=== PATIENT | male | born 1990 | race Caucasian/White ===

== ENCOUNTER 2017-04-23 12:09 | Emergency (ER) | payer SELFPAY ==
[2017-04-23] MEDS ORDERED: MORPHINE SULFATE 10 MG/ML INJ IV ONE ×2 (13:15→13:46)
[2017-04-23] MEDS ORDERED: ONDANSETRON HCL INJ/PF 4 MG/2 ML SDV IV ONE (13:15)
--- NOTE | 2017-04-23 13:16 | ER Document Report ---
ED Medical Screen (RME) - General Chief Complaint: Shoulder Injury Stated Complaint: LEFT SHOULDER PAIN Time Seen by Provider: 04/23/17 13:14 Notes: pt fell down stairs, has severe left shoulder pain TRAVEL OUTSIDE OF THE [place] IN LAST 30 DAYS: Yes - Related Data Allergies/Adverse Reactions: cefixime [From Suprax] Allergy (Verified 04/23/17 12:53) Past Medical History - Social History Chew tobacco use (# tins/day): No Frequency of alcohol use: None Drug Abuse: None Renal/ Medical History: Denies: Hx Peritoneal Dialysis Psychiatric Medical History: Reports: Hx Anxiety, Hx Depression - Immunizations Immunizations up to date: Yes Hx Diphtheria, Pertussis, Tetanus Vaccination: Yes Physical Exam - Vital signs Vitals: Temp Pulse Resp BP Pulse Ox 98.6 F 91 16 138/81 H 100 04/23/17 12:49 04/23/17 12:49 04/23/17 12:49 04/23/17 12:49 04/23/17 12:49 Course - Vital Signs Vital signs: Temp Pulse Resp BP Pulse Ox 98.6 F 91 16 138/81 H 100 04/23/17 12:49 04/23/17 12:49 04/23/17 12:49 04/23/17 12:49 04/23/17 12:49
[2017-04-23] MEDS ORDERED: MORPHINE SULFATE 10 MG/ML INJ ONE (13:43)
[2017-04-23] MEDS ORDERED: NORMAL SALINE 1000 ML 1,000 ML IV ONE (13:46)
[2017-04-23] MEDS ORDERED: PROPOFOL INJ 200 MG/20 ML VIAL IV ONE ×2 (13:46→14:38)
--- NOTE | 2017-04-23 13:48 | RADIOLOGY REPORT (SQ) ---
EXAM DESCRIPTION: SHOULDER LEFT 2 OR MORE VIEWS COMPLETED DATE/TIME: 04/23/2017 1:41 pm REASON FOR STUDY: pain COMPARISON: None. NUMBER OF VIEWS: Three views. TECHNIQUE: Internal rotation, external rotation, and Y view images acquired of the left shoulder. LIMITATIONS: None. FINDINGS: MINERALIZATION: Normal. BONES: Anterior dislocation of the humeral head. No definite acute fracture visualized. JOINTS: No dislocation. VISUALIZED LUNGS AND RIBS: No pneumothorax. No rib fracture. SOFT TISSUES: No radiopaque foreign body. OTHER: No other significant finding. IMPRESSION: ANTERIOR DISLOCATION OF THE HUMERAL HEAD. NO FRACTURE VISUALIZED. TECHNICAL DOCUMENTATION: JOB ID: [id number] [employer]- All Rights Reserved
--- NOTE | 2017-04-23 13:59 | ER Document Report ---
ED Extremity Problem, Upper - General Chief Complaint: Shoulder Injury Stated Complaint: LEFT SHOULDER PAIN Time Seen by Provider: 04/23/17 13:14 Notes: The patient is a 26-year-old male who presents with left shoulder pain and possible dislocation after he tripped down some stairs earlier today. He also has a left forehead swelling where he hit the bottom stair. He denies LOC, numbness, tingling, neck pain, abdominal pain, open wounds or history of prior dislocations. TRAVEL OUTSIDE OF THE [place] IN LAST 30 DAYS: Yes - Related Data Allergies/Adverse Reactions: cefixime [From Suprax] Allergy (Verified 04/23/17 12:53) Past Medical History - General Information source: Patient - Social History Smoking Status: Current Every Day Smoker Chew tobacco use (# tins/day): No Frequency of alcohol use: None Drug Abuse: None Family History: Reviewed & Not Pertinent Patient has suicidal ideation: No Patient has homicidal ideation: No Renal/ Medical History: Denies: Hx Peritoneal Dialysis Psychiatric Medical History: Reports: Hx Anxiety, Hx Depression - Immunizations Immunizations up to date: Yes Hx Diphtheria, Pertussis, Tetanus Vaccination: Yes Review of Systems - Review of Systems Notes: REVIEW OF SYSTEMS: CONSTITUTIONAL: -fevers, -chills EENT: -eye pain, -difficulty swallowing, -nasal congestion CARDIOVASCULAR:-chest pain, -syncope. RESPIRATORY: -cough, -SOB GASTROINTESTINAL: -abdominal pain, - nausea, -vomiting, -diarrhea GENITOURINARY: -dysuria, -hematuria MUSCULOSKELETAL: +left shoulder pain, -back pain, -neck pain SKIN: -rash or skin lesions. HEMATOLOGIC: -easy bruising or bleeding. LYMPHATIC: -swollen, enlarged glands. NEUROLOGICAL: -altered mental status or loss of consciousness, -headache, - neurologic symptoms PSYCHIATRIC: -anxiety, -depression. ALL OTHER SYSTEMS REVIEWED AND NEGATIVE. Physical Exam - Vital signs Vitals: Temp Pulse Resp BP Pulse Ox 98.6 F 91 16 138/81 H 100 04/23/17 12:49 04/23/17 12:49 04/23/17 12:49 04/23/17 12:49 04/23/17 12:49 - Notes Notes: PHYSICAL EXAMINATION: GENERAL: Uncomfortable. EYES: Pupils equal round and reactive to light, extraocular movements intact, sclera anicteric, conjunctiva are normal. ENT: nares patent, oropharynx clear without exudates. Moist mucous membranes. NECK: Normal range of motion, supple without lymphadenopathy LUNGS: Breath sounds clear to auscultation bilaterally and equal. No wheezes rales or rhonchi. HEART: Regular rate and rhythm without murmurs ABDOMEN: Soft, nontender, normoactive bowel sounds. No guarding, no rebound. No masses appreciated. EXTREMITIES: Deformity of left shoulder. Painful range of motion, no pitting or edema. No cyanosis. N/V intact distally. NEUROLOGICAL: Cranial nerves grossly intact. Normal speech, normal gait. Normal sensory and motor exams. PSYCH: Normal mood, normal affect. SKIN: Small left forehead contusion. Course - Re-evaluation Re-evalutation: Patient with first time left anterior shoulder dislocation that was reduced using procedural sedation and traction countertraction technique. He is neurovascularly intact distally. Placed patient in a shoulder sling, instructed him to use NSAIDs and follow-up with orthopedics tomorrow. - Vital Signs Vital signs: Temp Pulse Resp BP Pulse Ox 98.6 F 91 16 138/81 H 100 04/23/17 12:49 04/23/17 12:49 04/23/17 12:49 04/23/17 12:49 04/23/17 12:49 - Diagnostic Test Radiology reviewed: Image reviewed, Reports reviewed Radiology results interpreted by me: Left shoulder x-ray: Left anterior shoulder dislocation Procedures - Conscious Sedation Conscious sedation Time started: 14:10 Time completed: 14:30 Consent obtained: Yes Indication: Left shoulder dislocation Last meal: 1200 Normal healthy pt.: P1. - ASA Classification Airway Evaluation: Normal anatomy Mallampati Classification: Class 1 Used during procedure: Suction available, IV access obtained, Pulse ox on pt., surveillance system monitor on pt. Medications administered: Diprivan Reversal agents: None I personally performed/intraservice time: Sedation, Procedure, 30 min or less Complications: No - Immobilization Left Shoulder Time completed: 14:30 Pre-Proc Neuro Vasc Exam: Normal Immobilizer type: Shoulder immobilizer Performed by: Provider Post-Proc Neuro Vasc Exam: Normal Alignment checked and good: Yes - Joint Reduction/Fracture Care Left Shoulder Time completed: 14:30 Consent obtained: Yes Conscious sedation: Yes Pre-procedure NV exam: Yes Fracture: Other - Left shoulder dislocation Manipulation comment: Traction-Countertraction Post-procedure NV exam: Yes Post-reduction x-ray: Joint reduced Reduction attempts: 1 Complications: No Discharge - Discharge Clinical Impression: Anterior dislocation of left shoulder Qualifiers: Encounter type: initial encounter Qualified Code(s): S43.015A - Anterior dislocation of left humerus, initial encounter Condition: Stable Disposition: HOME, SELF-CARE Additional Instructions: Shoulder Dislocation You've had a shoulder dislocation. Even after the shoulder is put back in place, careful care is needed to prevent further problems. As the shoulder dislocated, injury to the joint itself occurred. This must be allowed to heal. The usual treatment is a shoulder immobilizing sling. If this is your first dislocation, it must be left in place until the doctor allows you to remove it. This is important. Ice pack the shoulder frequently. One of the most important aspects of care for a shoulder dislocation is mobility exercises and strengthening exercises. You'll start these when it's safe to start moving the shoulder joint. Be sure to keep your follow-up appointments. If you develop numbness in the arm or hand, weakness of the hand muscles, arm swelling, or arm discoloration, call the doctor or return immediately. Forms: Elevated Blood Pressure Referrals: ORLANDO FINLEY, [ACTIVE STAFF] - Follow up as needed
[2017-04-23 14:41] VITALS: BP 101/67
--- NOTE | 2017-04-23 14:53 | RADIOLOGY REPORT (SQ) ---
EXAM DESCRIPTION: SHOULDER LEFT 2 OR MORE VIEWS COMPLETED DATE/TIME: 04/23/2017 2:40 pm REASON FOR STUDY: post-reduction COMPARISON: 04/23/2017. NUMBER OF VIEWS: Two views. TECHNIQUE: Frontal and lateral images acquired of the left shoulder. LIMITATIONS: None. FINDINGS: MINERALIZATION: Normal. BONES: Post closed reduction of the anterior dislocation. No acute fracture or dislocation. No worr isome bone lesions. JOINTS: No dislocation. VISUALIZED LUNGS AND RIBS: No pneumothorax. No rib fracture. SOFT TISSUES: No radiopaque foreign body. OTHER: No other significant finding. IMPRESSION: SATISFACTORY POSITION FOLLOWING CLOSED REDUCTION OF THE ANTERIOR DISLOCATION OF THE LEFT SHOULDER. TECHNICAL DOCUMENTATION: JOB ID: [id number] [employer]- All Rights Reserved
[2017-04-23] MEDS ORDERED: KETOROLAC TROMETHAMINE INJ/PF 30 MG/1 ML SDV IV ONE (15:03)
== END 2017-04-23 15:54 | disposition home or self-care (01) ==
LOC: ER 12:09
DX: S43.015A Anterior dislocation of left humerus, initial encounter (principal); S00.83XA Contusion of other part of head, initial encounter; W10.9XXA Fall (on) (from) unspecified stairs and steps, initial encounter; F17.200 Nicotine dependence, unspecified, uncomplicated; Z88.1 Allergy status to other antibiotic agents
CPT/HCPCS: 99283; 96361; 96374; 96375; 73030; 23650; J1885; J2270; J2405; J7030; J2704

== ENCOUNTER 2017-05-01 14:53 | Emergency (ER) | payer SELFPAY ==
[2017-05-01] MEDS ORDERED: MORPHINE SULFATE 10 MG/ML INJ ONE (15:32)
[2017-05-01] MEDS ORDERED: ONDANSETRON 4 MG TAB.RAPDIS ONE (15:36)
[2017-05-01] MEDS ORDERED: MORPHINE SULFATE 10 MG/ML INJ IV ONE (15:40)
[2017-05-01] MEDS ORDERED: ONDANSETRON 4 MG TAB.RAPDIS PO ONE (15:40)
--- NOTE | 2017-05-01 15:40 | ER Document Report ---
ED Extremity Problem, Upper - General Chief Complaint: Shoulder Injury Stated Complaint: SHOULDER PAIN Time Seen by Provider: 05/01/17 15:30 Notes: Patient is a 26-year-old male, past medical history prior left shoulder dislocation 1 week ago that was reduced by myself using procedural sedation, who presents with left shoulder pain and feeling like it is dislocated again after he bent down to hot die picker a water bottle. Pain is worse when he moves. Denies numbness, tingling or open wounds. TRAVEL OUTSIDE OF THE [place] IN LAST 30 DAYS: Yes - Related Data Allergies/Adverse Reactions: cefixime [From Suprax] Allergy (Verified 05/01/17 15:29) Past Medical History - General Information source: Patient - Social History Smoking Status: Current Every Day Smoker Chew tobacco use (# tins/day): No Frequency of alcohol use: None Drug Abuse: None Family History: Reviewed & Not Pertinent Patient has suicidal ideation: No Patient has homicidal ideation: No Renal/ Medical History: Denies: Hx Peritoneal Dialysis Psychiatric Medical History: Reports: Hx Anxiety, Hx Depression - Immunizations Immunizations up to date: Yes Hx Diphtheria, Pertussis, Tetanus Vaccination: Yes Review of Systems - Review of Systems Notes: REVIEW OF SYSTEMS: CONSTITUTIONAL: -fevers, -chills EENT: -eye pain, -difficulty swallowing, -nasal congestion CARDIOVASCULAR:-chest pain, -syncope. RESPIRATORY: -cough, -SOB GASTROINTESTINAL: -abdominal pain, - nausea, -vomiting, -diarrhea GENITOURINARY: -dysuria, -hematuria MUSCULOSKELETAL: +left shoulder pain, -back pain, -neck pain SKIN: -rash or skin lesions. HEMATOLOGIC: -easy bruising or bleeding. LYMPHATIC: -swollen, enlarged glands. NEUROLOGICAL: -altered mental status or loss of consciousness, -headache, - neurologic symptoms PSYCHIATRIC: -anxiety, -depression. ALL OTHER SYSTEMS REVIEWED AND NEGATIVE. Physical Exam - Vital signs Vitals: Temp Pulse Resp BP Pulse Ox 98.5 F 87 18 144/92 H 99 05/01/17 15:06 05/01/17 15:06 05/01/17 15:06 05/01/17 15:06 05/01/17 15:06 - Notes Notes: PHYSICAL EXAMINATION: GENERAL: Uncomfortable. HEAD: Atraumatic, normocephalic. EYES: Pupils equal round and reactive to light, extraocular movements intact, sclera anicteric, conjunctiva are normal. ENT: nares patent, oropharynx clear without exudates. Moist mucous membranes. NECK: Normal range of motion, supple without lymphadenopathy LUNGS: Breath sounds clear to auscultation bilaterally and equal. No wheezes rales or rhonchi. HEART: Regular rate and rhythm without murmurs ABDOMEN: Soft, nontender, normoactive bowel sounds. No guarding, no rebound. No masses appreciated. EXTREMITIES: Holding left arm close to body. Unable to abduct arm. Anterior dislocation of humeral head palpated. NEUROLOGICAL: Cranial nerves grossly intact. Normal speech, normal gait. Normal sensory and motor exams. PSYCH: Normal mood, normal affect. SKIN: Warm, Dry, normal turgor, no rashes or lesions noted. Course - Re-evaluation Re-evalutation: I saw the patient last week for an initial left shoulder anterior dislocation. He presents with similar symptoms and clinically had a left shoulder dislocation. Before x-rays were obtained, he was given IM morphine and shoulder dislocation was successfully reduced using scapular manipulation and deltoid massage. Patient placed back in a shoulder immobilizer and instructed him follow-up with orthopedics and to begin physical therapy. Provide him with some exercises to help strengthen up his shoulder muscles. - Vital Signs Vital signs: Temp Pulse Resp BP Pulse Ox 98.5 F 87 18 144/92 H 99 05/01/17 15:06 05/01/17 15:06 05/01/17 15:06 05/01/17 15:06 05/01/17 15:06 Procedures - Immobilization Left Shoulder Time completed: 15:43 Pre-Proc Neuro Vasc Exam: Normal Immobilizer type: Shoulder immobilizer Performed by: PCT Post-Proc Neuro Vasc Exam: Normal Alignment checked and good: Yes - Joint Reduction/Fracture Care Left Shoulder Time completed: 15:42 Consent obtained: Yes - Verbal Conscious sedation: No - IM Morphine Pre-procedure NV exam: Yes Fracture: Other - Left shoulder dislocation Manipulation comment: Scapular manipulation with deltoid massage Post-procedure NV exam: Yes Post-reduction x-ray: Joint reduced Reduction attempts: 1 Complications: No Discharge - Discharge Clinical Impression: Recurrent dislocation, left shoulder Condition: Stable Disposition: HOME, SELF-CARE Additional Instructions: Dislocation You have suffered a dislocation of your joint. It has been reduced (put back in place). It will take time for the tissues around the joint to heal. The joint will be immobilized at first. If possible, elevate the injured area and apply ice packs. After healing is underway, the joint will require [id number] and strengthening exercises. The follow-up care is important in avoiding residual problems following your dislocation. If you note any numbness, muscle weakness, or severe swelling in the affected area, call the doctor or return for re-evaluation at once. Forms: Elevated Blood Pressure Referrals: ORLANDO FINLEY, [ACTIVE STAFF] - Follow up as needed
--- NOTE | 2017-05-01 16:28 | RADIOLOGY REPORT (SQ) ---
EXAM DESCRIPTION: SHOULDER LEFT 2 OR MORE VIEWS COMPLETED DATE/TIME: 05/01/2017 4:16 pm REASON FOR STUDY: post-reduction COMPARISON: 04/23/2017. NUMBER OF VIEWS: Three views. TECHNIQUE: Internal rotation, external rotation, and Y view images acquired of the left shoulder. LIMITATIONS: None. FINDINGS: MINERALIZATION: Normal. BONES: No acute fracture or dislocation. Hill-Sachs deformity on the humeral head. No worrisome bon e lesions. JOINTS: No dislocation. VISUALIZED LUNGS AND RIBS: No pneumothorax. No rib fracture. SOFT TISSUES: No radiopaque foreign body. OTHER: No other significant finding. IMPRESSION: NEGATIVE STUDY OF THE LEFT SHOULDER. NO RADIOGRAPHIC EVIDENCE OF ACUTE INJURY. TECHNICAL DOCUMENTATION: JOB ID: [id number] [employer]- All Rights Reserved
[2017-05-01 16:29] VITALS: BP 139/81
== END 2017-05-01 16:36 | disposition home or self-care (01) ==
LOC: ER 14:53
PROC: 0RSKXZZ Reposition Left Shoulder Joint, External Approach (ICD-10-PCS; principal; 2017-05-01)
DX: M24.412 Recurrent dislocation, left shoulder (principal); M25.512 Pain in left shoulder; F17.200 Nicotine dependence, unspecified, uncomplicated
CPT/HCPCS: 99283; 96374; 73030; 23650; L3650; S0119; J2270

== ENCOUNTER 2017-08-27 21:49 | Emergency (ER) | payer OTHER ==
[2017-08-27] MEDS ORDERED: ONDANSETRON HCL INJ/PF 4 MG/2 ML SDV IV ONE (22:22)
[2017-08-27] MEDS ORDERED: FENTANYL CITRATE INJ/PF 100 MCG/2 ML AMPUL IV ONE ×2 (22:22→22:48)
--- NOTE | 2017-08-27 22:25 | ER Document Report ---
ED Medical Screen (RME) - General Chief Complaint: Shoulder Pain Stated Complaint: DISLOCATED SHOULDER Time Seen by Provider: 08/27/17 22:24 Notes: 27-year-old male chief complaint of possible dislocation of left shoulder TRAVEL OUTSIDE OF THE [place] IN LAST 30 DAYS: Yes - Related Data Allergies/Adverse Reactions: cefixime [From Suprax] Allergy (Verified 05/01/17 15:29) Past Medical History Renal/ Medical History: Denies: Hx Peritoneal Dialysis Psychiatric Medical History: Reports: Hx Anxiety, Hx Depression - Immunizations Immunizations up to date: Yes Hx Diphtheria, Pertussis, Tetanus Vaccination: Yes Physical Exam - Vital signs Vitals: Temp Pulse Resp BP Pulse Ox 98.7 F 102 H 20 142/85 H 97 08/27/17 21:57 08/27/17 21:57 08/27/17 21:57 08/27/17 21:57 08/27/17 21:57 - Extremities General upper extremity: Other - Exam consistent with dislocation, normal distal neurovascular exam Course - Vital Signs Vital signs: Temp Pulse Resp BP Pulse Ox 98.7 F 102 H 20 142/85 H 97 08/27/17 21:57 08/27/17 21:57 08/27/17 21:57 08/27/17 21:57 08/27/17 21:57
[2017-08-27] MEDS ORDERED: PROPOFOL INJ 200 MG/20 ML VIAL IV ONE (22:48)
--- NOTE | 2017-08-27 22:53 | ER Document Report ---
ED General - General Chief Complaint: Shoulder Pain Stated Complaint: DISLOCATED SHOULDER Time Seen by Provider: 08/27/17 22:24 Mode of Arrival: Ambulatory Information source: Patient Notes: 27-year-old male with no reported past medical history presents with complaint of left shoulder pain that started just prior to arrival. Patient states he was pushing a large cart was loaded with potted plants when his shoulder "gave out". He has had prior dislocation a few months ago. He denies any surgeries of the shoulder. He denies falling with this current injury. He denies any fever, chills, chest pain, shortness of breath, abdominal pain, back pain, weakness. TRAVEL OUTSIDE OF THE [place] IN LAST 30 DAYS: Yes - HPI Onset: Just prior to arrival Onset/Duration: Sudden Quality of pain: Throbbing Severity: Moderate Associated symptoms: None Exacerbated by: Movement Relieved by: Remaining still Similar symptoms previously: Yes - april 2016 Recently seen / treated by doctor: No - Related Data Allergies/Adverse Reactions: cefixime [From Suprax] Allergy (Verified 05/01/17 15:29) Past Medical History - General Information source: Patient - Social History Smoking Status: Current Every Day Smoker Frequency of alcohol use: Occasional Drug Abuse: None Lives with: Family Family History: Reviewed & Not Pertinent Patient has suicidal ideation: No Patient has homicidal ideation: No - Medical History Medical History: Negative Renal/ Medical History: Denies: Hx Peritoneal Dialysis Psychiatric Medical History: Reports: Hx Anxiety, Hx Depression - Immunizations Immunizations up to date: Yes Hx Diphtheria, Pertussis, Tetanus Vaccination: Yes Review of Systems - Review of Systems Notes: He denies any fever, chills, chest pain, shortness of breath, abdominal pain, back pain, weakness. Physical Exam - Vital signs Vitals: Temp Pulse Resp BP Pulse Ox 98.7 F 102 H 20 142/85 H 97 08/27/17 21:57 08/27/17 21:57 08/27/17 21:57 08/27/17 21:57 08/27/17 21:57 Interpretation: Normal, Hypertensive, Tachycardic - Notes Notes: HYSICAL EXAMINATION: GENERAL: Well-appearing, well-nourished and in no acute distress. HEAD: Atraumatic, normocephalic. EYES: Pupils equal round and reactive to light, extraocular movements intact, sclera anicteric, conjunctiva are normal. ENT: Nares patent, oropharynx clear without exudates. Moist mucous membranes. NECK: Normal range of motion, supple without lymphadenopathy LUNGS: Breath sounds clear to auscultation bilaterally and equal. No wheezes rales or rhonchi. HEART: Regular rate and rhythm without murmurs ABDOMEN: Soft, nontender, nondistended abdomen. No guarding, no rebound. No masses appreciated. Musculoskeletal: She is range of motion in obvious to her many of the left shoulder. Cap refill intact. No neuro deficits. Sensation intact. NEUROLOGICAL: Cranial nerves grossly intact. Normal speech, normal gait. Normal sensory, motor exams PSYCH: Normal mood, normal affect. SKIN: Warm, Dry, normal turgor, no rashes or lesions noted. Course - Re-evaluation Re-evalutation: Shoulder X-Ray 08/27/17 23:09 IMPRESSION: Glenohumeral relationship appears restored on this single view. No fracture identified. 08/27/17 22:54 X-rays reviewed and significant for left shoulder dislocation. consent for shoulder reduction obtained. 08/28/17 00:25 Post reduction film shows appropriate alignment. 08/28/17 19:14 27 M presents with c/o left shoulder pain found to be dislocated. Using conscious sedation with fentanyl and propofol patient's shoulder was easily reduced. Post-reduction films with a proper alignment. Patient reports resolution of pain. He was placed in sling and advised to f/u with ortho as needed. Motrin rx provided. - Vital Signs Vital signs: Temp Pulse Resp BP Pulse Ox 98.7 F 80 15 104/79 98 08/27/17 21:57 08/27/17 23:10 08/28/17 00:32 08/28/17 00:32 08/28/17 00:32 Procedures - Joint Reduction/Fracture Care Left Shoulder Time completed: 11:00 Consent obtained: Yes Conscious sedation: Yes - 100 mg of fentanyl, 150 of propofol. Pre-procedure NV exam: Yes Post-procedure NV exam: Yes Post-reduction x-ray: Joint reduced Reduction attempts: 1 Complications: No Discharge - Discharge Clinical Impression: Recurrent dislocation, left shoulder Condition: Good Disposition: HOME, SELF-CARE Instructions: Shoulder Dislocation ([facility]) Prescriptions: Ibuprofen [Motrin 600 Mg Tablet] 600 mg PO TID #15 tablet Forms: Return to Work Referrals: ERIC JONES MD [ACTIVE STAFF] - Follow up as needed
--- NOTE | 2017-08-27 23:56 | RADIOLOGY REPORT (SQ) ---
EXAM DESCRIPTION: SHOULDER LEFT 2 OR MORE VIEWS COMPLETED DATE/TIME: 08/27/2017 10:08 pm REASON FOR STUDY: pos. dislocation COMPARISON: None. NUMBER OF VIEWS: Three views. TECHNIQUE: Internal rotation, external rotation, and Y view images acquired of the left shoulder. LIMITATIONS: None. FINDINGS: MINERALIZATION: Normal. BONES: No acute fracture. Anterior-inferior glenohumeral dislocation. No worrisome bone lesions. VISUALIZED LUNGS AND RIBS: No pneumothorax. No rib fracture. SOFT TISSUES: No radiopaque foreign body. OTHER: No other significant finding. IMPRESSION: Anterior-inferior glenohumeral dislocation. TECHNICAL DOCUMENTATION: JOB ID: [id number] 2010 [email or web address]- All Rights Reserved Reading location - IP/workstation name: [email or web address]
--- NOTE | 2017-08-27 23:57 | RADIOLOGY REPORT (SQ) ---
EXAM DESCRIPTION: SHOULDER LEFT 1 VIEW COMPLETED DATE/TIME: 08/27/2017 11:17 pm REASON FOR STUDY: Reduction COMPARISON: None. NUMBER OF VIEWS: One view. TECHNIQUE: Frontal images acquired of the left shoulder. LIMITATIONS: None. FINDINGS: Glenohumeral relationship appears restored on this single view. No fracture identified. IMPRESSION: Glenohumeral relationship appears restored on this single view. No fracture identified. TECHNICAL DOCUMENTATION: JOB ID: [id number] [id number] 2010 [employer]- All Rights Reserved Reading location - IP/workstation name: [email or web address]
[2017-08-28 01:01] VITALS: BP 104/79
== END 2017-08-28 00:35 | disposition home or self-care (01) ==
LOC: ER 21:49
PROC: 0RSKXZZ Reposition Left Shoulder Joint, External Approach (ICD-10-PCS; principal; 2017-08-27)
DX: M24.412 Recurrent dislocation, left shoulder (principal); M25.512 Pain in left shoulder; F17.200 Nicotine dependence, unspecified, uncomplicated
CPT/HCPCS: 99284; 99152; 96374; 96375; 73020; 73030; 23650; L3650; J3010; J2405; J2704

== ENCOUNTER 2018-01-03 15:32 | Emergency (ER) | payer SELFPAY ==
[2018-01-03] MEDS ORDERED: KETOROLAC TROMETHAMINE INJ/PF 30 MG/1 ML SDV IV ONE (15:54)
[2018-01-03] MEDS ORDERED: DEXAMETHASONE SOD PHOS INJ 10 MG/1 ML VIAL IV ONE (15:55)
[2018-01-03] MEDS ORDERED: LIDOCAINE 2% VISCOUS SOLN 20 ML UDCUP PO ONE (16:03)
--- NOTE | 2018-01-03 16:14 | ER Document Report ---
ED Oral Problem - General Chief Complaint: Sore Throat Stated Complaint: SORE THROAT Time Seen by Provider: 01/03/18 15:42 Mode of Arrival: Ambulatory Information source: Patient Notes: 27-year-old male presents to ED for severe sore throat. He states has been hurting since . He states it started to give him pain to the right ear and both left and right lymphadenopathy. He does come to the ER with a temperature of 101.3 pulse 107. He has very enlarged tonsils with exudate red and swollen. He states he is david and sexually active and would like to be tested for HIV at this time. He will also be tested for GC and chlamydia throat swab. TRAVEL OUTSIDE OF THE [place] IN LAST 30 DAYS: No - HPI Patient complains to provider of: Sore throat Onset: Gradual Quality of pain: Pressure, Sharp, Throbbing Severity: Moderate Pain Level: 3 Sore throat: Severe Associated symptoms: Drooling, Fever, Unable to swallow, White patches in mouth , Other - sore throat Worsened by: Other - food Similar symptoms previously: Yes Recently seen / treated by doctor/dentist: No - Related Data Allergies/Adverse Reactions: cefixime [From Suprax] Allergy (Verified 05/01/17 15:29) tramadol Allergy (Verified 01/03/18 15:33) Past Medical History - General Information source: Patient - Social History Smoking Status: Former Smoker Cigarette use (# per day): No Chew tobacco use (# tins/day): No Smoking Education Provided: No Frequency of alcohol use: Social Drug Abuse: None Occupation: retail Lives with: Friend Family History: Reviewed & Not Pertinent Patient has suicidal ideation: No Patient has homicidal ideation: No - Past Medical History Cardiac Medical History: Reports: Other - Arrhythmia Pulmonary Medical History: Reports: None EENT Medical History: Reports: None Neurological Medical History: Reports: Hx Seizures Endocrine Medical History: Reports: None Renal/ Medical History: Reports: None Malignancy Medical History: Reports None GI Medical History: Reports: None Musculoskeletal Medical History: Reports Hx Musculoskeletal Trauma Skin Medical History: Reports None Psychiatric Medical History: Reports: Hx Anxiety, Hx Depression Traumatic Medical History: Reports: None Infectious Medical History: Reports: None Past Surgical History: Reports: Hx Cardiac Surgery - Loop recorder, Hx Orthopedic Surgery - Left wrist - Immunizations Immunizations up to date: Yes Hx Diphtheria, Pertussis, Tetanus Vaccination: Yes Review of Systems - Review of Systems Constitutional: Chills, Fever, Recent illness EENT: Throat pain, Difficulty swallowing Cardiovascular: No symptoms reported Respiratory: No symptoms reported Gastrointestinal: No symptoms reported Genitourinary: No symptoms reported Male Genitourinary: No symptoms reported Musculoskeletal: No symptoms reported Skin: No symptoms reported Hematologic/Lymphatic: No symptoms reported Neurological/Psychological: No symptoms reported -: Yes All other systems reviewed and negative Physical Exam - Vital signs Vitals: Temp Pulse Resp BP Pulse Ox 101.3 F H 107 H 16 135/84 H 97 01/03/18 15:35 01/03/18 15:35 01/03/18 15:35 01/03/18 15:35 01/03/18 15:35 Interpretation: Hypertensive, Febrile - General General appearance: Appears well, Alert - HEENT Head: Normocephalic, Atraumatic Eyes: Normal Pupils: PERRL Ears: Normal External canal: Normal Tympanic membrane: Normal Sinus: Normal Nasal: Normal Mouth/Lips: Normal Mucous membranes: Normal Pharynx: Exudate, Post nasal drainage, Tonsillar hypertrophy Neck: Anterior cervical chain, Lymphadenopathy - Respiratory Respiratory status: No respiratory distress Chest status: Nontender Breath sounds: Normal Chest palpation: Normal - Cardiovascular Rhythm: Regular Heart sounds: Normal auscultation Murmur: No - Abdominal Inspection: Normal Distension: No distension Bowel sounds: Normal Tenderness: Nontender Organomegaly: No organomegaly - Back Back: Normal, Nontender - Extremities General upper extremity: Normal inspection, Nontender, Normal color, Normal ROM , Normal temperature General lower extremity: Normal inspection, Nontender, Normal color, Normal ROM , Normal temperature, Normal weight bearing. No: Clyde's sign - Neurological Neuro grossly intact: Yes Cognition: Normal Orientation: AAOx4 Ambrose Coma Scale Eye Opening: Spontaneous Sherry Coma Scale Verbal: Oriented Sherry Coma Scale Motor: Obeys Commands Sherry Coma Scale Total: 15 Speech: Normal Motor strength normal: LUE, RUE, LLE, RLE Sensory: Normal - Psychological Associated symptoms: Normal affect, Normal mood - Skin Skin Temperature: Warm Skin Moisture: Dry Skin Color: Normal Course - Re-evaluation Re-evalutation: 01/03/18 19:31 Patient was treated with Toradol Decadron and viscous lidocaine for his sore throat. After his strep test was positive he was treated with penicillin G IM. Patient requested an HIV test which was negative. At first he requested a GC and chlamydia throat culture but after his strep was negative he decided he did not want that to be run anymore. Patient was instructed on changing his toothbrush gargling with warm salt and soda water and no oral contact with anyone for at least the next 4 days. - Vital Signs Vital signs: Temp Pulse Resp BP Pulse Ox 98.2 F 86 16 119/58 L 96 01/03/18 17:39 01/03/18 17:39 01/03/18 17:39 01/03/18 17:39 01/03/18 17:39 - Laboratory Result Diagrams: 01/03/18 16:36 Laboratory results interpreted by me: 01/03/18 16:36 WBC 13.7 H Absolute Neutrophils 10.6 H Discharge - Discharge Clinical Impression: Strep pharyngitis Condition: Stable Disposition: HOME, SELF-CARE Instructions: Family Physicians / Practices Additional Instructions: STREP THROAT: Your sore throat is due to the streptococcus germ (strep throat). Strep throat usually makes you feel quite ill with fever and aches, headache, swollen sore throat, and tender bumps under the angles of the jaw. Strep throat requires antibiotic treatment. Although the sore throat may go away by itself, complications such as rheumatic fever, kidney disease, or throat abscess can occur. We usually prescribe antibiotics by mouth. Be sure to take the medicine until it's gone. If you stop early, the strep may come back. If you are vomiting, are severely ill, or can't remember to take pills, we can give you an antibiotic shot. Take acetaminophen or ibuprofen for pain and fever. Sip frequent clear liquids, or use popsicles or ice chips. Anesthetic sprays or lozenges may help. Make sure the air in the room is not too dry. Avoid using decongestants or antihistamines. Call the doctor if there is no improvement in three days, or if you have difficulty breathing, increasing throat pain, high fever, rash, or frequent vomiting. Penicillins The antibiotic you have received is a member of the penicillin family. This is a very useful class of antibiotics. The particular type of antibiotic chosen for you was determined by the nature of your problem. Penicillins are absorbed best when taken on an empty stomach, and should be taken either a half hour before or two hours after a meal. Some newer medicines of the penicillin class are better taken with food -- if this is the case, the pharmacist will label the medicine to alert you. Penicillins usually have no side effects. However, allergy to penicillins is common. If you have had an allergic reaction to any drug of the penicillin family, you should never take any other penicillin. Notify your doctor at once if you develop hives, itching, swelling, faintness, or shortness of breath. Less serious side effects can include nausea or diarrhea. STEROID MEDICATION: You have been given a medicine of the cortisone/steroid class. This medication is used to control inflammation or allergy. It is usually only given for a short period of time, until the acute process subsides. There are usually no side effects from short-term use of cortisone-like medications. Some persons feel an increased sense of well-being and are not sleepy at bedtime. Long-term use of cortisone medications is best avoided, unless required for a severe condition. If your condition does not remit, or relapses after the course of corticosteroid medication, you should consult your physician. Toradol Injection You have been given an injection of ketorolac tromethamine (Toradol). This is an excellent, safe drug for pain control. It also has potent antiinflammatory action. You should have significant pain relief within about one hour. Toradol is not addicting and is non-sedating. It does not interfere with driving or work. Call or return if you develop itching, hives, shortness of breath, or rash. You have requested to leave before your HIV results have come back. He will need to go to the health department to request your results of your HIV test. FOLLOW-UP CARE: If you have been referred to a physician for follow-up care, call the physician s office for an appointment as you were instructed or within the next two days. If you experience worsening or a significant change in your symptoms, notify the physician immediately or return to the Emergency Department at any time for re-evaluation. Prescriptions: Dexamethasone [Decadron 4 Mg Tablet] 8 mg PO DAILY #4 tablet Forms: Elevated Blood Pressure, Return to Work
[2018-01-03] MEDS ORDERED: PENICILLIN G BENZATHINE 1.2 MILLION UNIT/2 ML DISP.SYRIN IM ONE (16:36)
[2018-01-03 17:22] LABS: ABSOLUTE LYMPHOCYTES (AUTO) 1.8 10^3/uL (0.5-4.7); ABSOLUTE MONOCYTES (AUTO) 1.3 10^3/uL (0.1-1.4); ABSOLUTE NEUT (AUTO) 10.6 10^3/uL (1.7-8.2); BASOPHILS % (AUTO) 0.2 % (0-2); EOSINOPHILS % (AUTO) 0.3 % (0-6); HEMATOCRIT 44.7 % (37.9-51.0); HEMOGLOBIN 15.3 g/dL (13.5-17.0); LYMPHOCYTES % (AUTO) 13.2 % (13-45); MEAN CORPUSCULAR HEMOGLOBIN 31.4 pg (27.0-33.4); MEAN CORPUSCULAR HGB CONC 34.2 g/dL (32.0-36.0); MEAN CORPUSCULAR VOLUME 92 fl (80-97); MONOCYTES % (AUTO) 9.1 % (3-13); PLATELET COUNT 224 10^3/uL (150-450); RED BLOOD COUNT 4.87 10^6/uL (4.35-5.55); RED CELL DISTRIBUTION WIDTH 13.1 % (11.5-14.0); SEGMENTED NEUTROPHILS % (AUTO) 77.2 % (42-78); TOTAL CELLS COUNTED % (AUTO) 100 %; WHITE BLOOD COUNT 13.7 10^3/uL (4.0-10.5)
[2018-01-03 17:47] VITALS: BP 119/58
== END 2018-01-03 17:50 | disposition home or self-care (01) ==
LOC: ER 15:32
DX: J02.0 Streptococcal pharyngitis (principal); R13.10 Dysphagia, unspecified; H92.01 Otalgia, right ear; R09.82 Postnasal drip; R50.9 Fever, unspecified; Z11.4 Encounter for screening for human immunodeficiency virus [HIV]; Z88.5 Allergy status to narcotic agent; Z88.1 Allergy status to other antibiotic agents; Z87.891 Personal history of nicotine dependence
CPT/HCPCS: 99283; 96372; 96374; 96375; 87491; 87591; 36415; 87880; 85025; 86308; 86701; J3490; J1885; J0561; J1100

== ENCOUNTER 2018-01-23 10:28 | Emergency (ER) | payer SELFPAY ==
[2018-01-23 10:38] VITALS: BP 134/91
[2018-01-23] MEDS ORDERED: KETOROLAC TROMETHAMINE 60 MG/2 ML SDV IM ONE (11:24)
--- NOTE | 2018-01-23 11:25 | ER Document Report ---
ED Medical Screen (RME) - General Chief Complaint: Abscess Stated Complaint: ABSCESS Time Seen by Provider: 01/23/18 11:23 Notes: 27 years old male presents today with right gluteal pain as well as discharge. Apparently he recently has been having pain and discomfort over a week. No fever chills or other constitutional symptoms. On examination there is a small punctate opening on the right cheek was noted. Looks like there is a tract going in towards the rectum. Pilonidal cyst with tract. TRAVEL OUTSIDE OF THE [place] IN LAST 30 DAYS: No - Related Data Allergies/Adverse Reactions: cefixime [From Suprax] Allergy (Verified 01/23/18 10:30) tramadol Allergy (Verified 01/23/18 10:30) Past Medical History - Social History Frequency of alcohol use: Social Drug Abuse: None Neurological Medical History: Reports: Hx Seizures Renal/ Medical History: Denies: Hx Peritoneal Dialysis Musculoskeltal Medical History: Reports Hx Musculoskeletal Trauma Psychiatric Medical History: Reports: Hx Anxiety, Hx Depression Past Surgical History: Reports: Hx Cardiac Surgery - Loop recorder, Hx Orthopedic Surgery - Left wrist - Immunizations Immunizations up to date: Yes Hx Diphtheria, Pertussis, Tetanus Vaccination: Yes Physical Exam - Vital signs Vitals: Temp Pulse Resp BP Pulse Ox 99.2 F 110 H 16 134/91 H 97 01/23/18 10:35 01/23/18 10:35 01/23/18 10:35 01/23/18 10:35 01/23/18 10:35 Course - Vital Signs Vital signs: Temp Pulse Resp BP Pulse Ox 99.2 F 110 H 16 134/91 H 97 01/23/18 10:35 01/23/18 10:35 01/23/18 10:35 01/23/18 10:35 01/23/18 10:35
[2018-01-23 11:52] LABS: ABSOLUTE LYMPHOCYTES (AUTO) 2.1 10^3/uL (0.5-4.7); ABSOLUTE MONOCYTES (AUTO) 0.4 10^3/uL (0.1-1.4); ABSOLUTE NEUT (AUTO) 2.6 10^3/uL (1.7-8.2); BASOPHILS % (AUTO) 0.5 % (0-2); EOSINOPHILS % (AUTO) 0.7 % (0-6); HEMATOCRIT 42.3 % (37.9-51.0); HEMOGLOBIN 14.4 g/dL (13.5-17.0); LYMPHOCYTES % (AUTO) 40.7 % (13-45); MEAN CORPUSCULAR HEMOGLOBIN 31.5 pg (27.0-33.4); MEAN CORPUSCULAR HGB CONC 34.1 g/dL (32.0-36.0); MEAN CORPUSCULAR VOLUME 92 fl (80-97); MONOCYTES % (AUTO) 8.2 % (3-13); PLATELET COUNT 274 10^3/uL (150-450); RED BLOOD COUNT 4.58 10^6/uL (4.35-5.55); RED CELL DISTRIBUTION WIDTH 13.3 % (11.5-14.0); SEGMENTED NEUTROPHILS % (AUTO) 49.9 % (42-78); TOTAL CELLS COUNTED % (AUTO) 100 %; WHITE BLOOD COUNT 5.2 10^3/uL (4.0-10.5)
--- NOTE | 2018-01-23 12:02 | ER Document Report ---
ED General - General Chief Complaint: Abscess Stated Complaint: ABSCESS Time Seen by Provider: 01/23/18 11:23 TRAVEL OUTSIDE OF THE [place] IN LAST 30 DAYS: No - HPI Notes: Patient is a 27-year-old male with no significant past medical history who presents to the ED complaining of right medial buttock pain and a pimple-like lesion that is painful to touch and is draining over the last week. Patient states he has pain all throughout that area and not just locally. He is still able to eat and drink without difficulties. He is urinating normally and having normal bowel movements. Denies any IV drug use. Denies any history of MRSA. He is still urinating Denies any headache, fever, URI, sore throat, chest pain, palpitations, syncope, cough, shortness of breath, wheeze, dyspnea, abdominal pain, nausea/vomiting/diarrhea, urinary retention, dysuria, hematuria , loss of control of bowel or bladder, numbness/tingling, saddle anesthesia, muscle paralysis/weakness. - Related Data Allergies/Adverse Reactions: cefixime [From Suprax] Allergy (Verified 01/23/18 10:30) tramadol Allergy (Verified 01/23/18 10:30) Past Medical History - Social History Smoking Status: Current Some Day Smoker Frequency of alcohol use: Social Drug Abuse: None Family History: Reviewed & Not Pertinent Patient has suicidal ideation: No Patient has homicidal ideation: No Neurological Medical History: Reports: Hx Seizures Renal/ Medical History: Denies: Hx Peritoneal Dialysis Musculoskeletal Medical History: Reports Hx Musculoskeletal Trauma Psychiatric Medical History: Reports: Hx Anxiety, Hx Depression Past Surgical History: Reports: Hx Cardiac Surgery - Loop recorder, Hx Orthopedic Surgery - Left wrist - Immunizations Immunizations up to date: Yes Hx Diphtheria, Pertussis, Tetanus Vaccination: Yes Review of Systems - Review of Systems -: Yes All other systems reviewed and negative Physical Exam - Vital signs Vitals: Temp Pulse Resp BP Pulse Ox 99.2 F 110 H 16 134/91 H 97 01/23/18 10:35 01/23/18 10:35 01/23/18 10:35 01/23/18 10:35 01/23/18 10:35 - Notes Notes: PHYSICAL EXAMINATION: GENERAL: Well-appearing, well-nourished and in no acute distress. HEAD: Atraumatic, normocephalic. EYES: Pupils equal round and reactive to light, extraocular movements intact, sclera anicteric, conjunctiva are normal. ENT: EAC clear b/l. TM's intact b/l without erythema, fluid, or perforation. Nares patent and without discharge. oropharynx clear without exudates. No tonsilar hypertrophy or erythema. Moist mucous membranes. No sinus tenderness. NECK: Normal range of motion, supple without lymphadenopathy LUNGS: Breath sounds clear to auscultation bilaterally and equal. No wheezes rales or rhonchi. HEART: Regular rate and rhythm without murmurs, rubs, gallops. ABDOMEN: Soft, nontender, nondistended abdomen. No guarding, no rebound. No masses appreciated. Normal bowel sounds present. No CVA tenderness bilaterally. Buttocks: there is a 0.5cm maculopapular lesion noted with scant purulent discharge and an opening. + tenderness to the rt buttock and near the anus to palpation although I do not see any erythema/abscess to the anus. there does seem to be a palp cord deep to the skin running towards the midline. wound cx obtained. No surrounding streaks. Musculoskeletal: FROM to passive/active. Strength 5+/5. Extremities: No cyanosis, clubbing, or edema b/l. Peripheral pulses 2+. Capillary refill less than 3 seconds. NEUROLOGICAL: Normal speech, normal gait. PSYCH: Normal mood, normal affect. SKIN: see above. Warm, Dry, normal turgor, no rashes or lesions noted. Course - Re-evaluation Re-evalutation: 01/23/18 12:[address] Marquez, surgeon, who will come eval the patient due to atypical presentation. 01/23/18 12:11 Dr. Marquez eval'd the patient and dx'd fistula. he will be cleaning it at the beside with I&D. Recommends discharge with bactrim and f/u as outpatient once healed for elective surgery. Pt is in agreement with plan. 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 Vitals are acceptable without significant tachycardia, tachypnea, or hypoxia. PE is otherwise unremarkable. Incision and drainage will be performed by the general surgeon. Wound instructions per general surgery. CBC and CMP are otherwise unremarkable at this time. No other labs or imaging warranted at this time based on H&P. Recheck with your PCM next week as well. Schedule elective outpatient appointment with general surgery. Return to the ED with any worsening/concerning symptoms otherwise as reviewed in discharge. Patient is in agreement. - Vital Signs Vital signs: Temp Pulse Resp BP Pulse Ox 99.2 F 110 H 16 134/91 H 97 01/23/18 10:35 01/23/18 10:35 01/23/18 10:35 01/23/18 10:35 01/23/18 10:35 - Laboratory Result Diagrams: 01/23/18 11:30 01/23/18 11:30 Laboratory results interpreted by me: 01/23/18 11:30 Sodium 148.5 H Calcium 11.0 H Discharge - Discharge Clinical Impression: Fistula Condition: Stable Disposition: HOME, SELF-CARE Instructions: Trimethoprim-Sulfa ([facility]) Additional Instructions: Keep the skin clean Wash with soap and water Tylenol/ibuprofen if needed Triple antibiotic ointment daily or as directed by Dr. Marquez Take medication as directed Monitor for any worsening symptoms Recheck with your PCM in 3-5 days Follow-up with general surgery as directed for elective surgery once wound is healed Return to the ED with any worsening symptoms and/or development of fever, headache, chest pain, palpitations, syncope, shortness of breath, trouble breathing, abdominal pain, n/v/d, abscess, purulent discharge, red streaks, worsening swelling, or other worsening symptoms that are concerning to you. Prescriptions: Sulfamethoxazole/Trimethoprim [Bactrim Ds Tablet] 1 each PO BID #20 tablet Forms: Elevated Blood Pressure Referrals: LEILA MARQUEZ MD [ACTIVE STAFF] - Follow up as needed
[2018-01-23 12:09] LABS: ALANINE AMINOTRANSFERASE 27 U/L (21-72); ALBUMIN 4.9 g/dL (3.5-5.0); ALKALINE PHOSPHATASE 70 U/L (38-126); ANION GAP 16 (5-19); ASPARTATE AMINO TRANSFERASE 23 U/L (17-59); BILIRUBIN,DIRECT 0.3 mg/dL (0.0-0.4); BILIRUBIN,TOTAL 0.4 mg/dL (0.2-1.3); BLOOD UREA NITROGEN 8 mg/dL (7-20); CARBON DIOXIDE 27 mmol/L (22-30); CHLORIDE 106 mmol/L (98-107); GLUCOSE 91 mg/dL (75-110); POTASSIUM 4.2 mmol/L (3.6-5.0); SODIUM 148.5 mmol/L (137-145)
[2018-01-23] MEDS ORDERED: LIDOCAINE 1%/EPINEPHRINE INJ 20 ML VIAL INJ ONE (12:10)
--- NOTE | 2018-01-23 13:03 | PDOC CONSULTATION ---
Consultation Consult Date: 01/23/18 Consult reason:: perirectal abscess/fistula History of Present Illness Patient complains of: perirectal pain History of Present Illness: MOISÉS ROMAN is a 27 year old male with a 3-4 week h/o parirectal drainage. The drainage has become worse and his pain is increasing. His pain is rated as a 5/10. His pain is relieved after the lesion drains. The drainage occurs at approximately 3 o'clock on the skin of the right buttock. He denies fevers or chills. He denies CP, SOB, nausea, vomiting, abdominal pain, dizziness, orthostasis, fatigue, malaise, blurry vision. Past Medical History Neurological Medical History: Reports: Seizures Psychiatric Medical History: Reports: Depression Past Surgical History Past Surgical History: Reports: Orthopedic Surgery - Left wrist Social History Smoking Status: Current Some Day Smoker Frequency of Alcohol Use: Occasional Family History Family History: Reviewed & Not Pertinent Parental Family History Reviewed: Yes Children Family History Reviewed: Yes Sibling(s) Family History Reviewed.: Yes Medication/Allergy Home Medications: Ondansetron [Zofran Odt 4 mg Tablet] 1 - 2 tab PO Q4H PRN #20 tab.rapdis Oxycodone HCl/Acetaminophen [Percocet 5-325 mg Tablet] 1 - 2 tab PO Q4H PRN #20 tablet 05/16/16 Tamsulosin HCl [Flomax 0.4 mg Cap.sr] 0.4 mg PO DAILY #7 cap.sr.24h 05/16/16 Ibuprofen [Motrin 600 Mg Tablet] 600 mg PO TID #15 tablet 08/28/17 Dexamethasone [Decadron 4 Mg Tablet] 8 mg PO DAILY #4 tablet 01/03/18 Sulfamethoxazole/Trimethoprim [Bactrim Ds Tablet] 1 each PO BID #20 tablet 01/23 Allergies/Adverse Reactions: cefixime [From Suprax] Allergy (Verified 01/23/18 10:30) tramadol Allergy (Verified 01/23/18 10:30) Review of Systems Constitutional: ABSENT: anorexia, chills, fatigue, headache(s), night sweats, weakness Eyes: ABSENT: visual disturbances Nose, Mouth, and Throat: ABSENT: sore throat Cardiovascular: ABSENT: edema, orthropnea, palpitations Respiratory: ABSENT: cough, dyspnea Gastrointestinal: ABSENT: abdominal pain, constipation Genitourinary: ABSENT: dysuria Integumentary: ABSENT: pruritus, rash Neurological: ABSENT: confusion, convulsions, dizziness, memory loss Psychiatric: ABSENT: anxiety, hallucinations Endocrine: ABSENT: cold intolerance, heat intolerance Hematologic/Lymphatic: ABSENT: easy bleeding, easy bruising Physical Exam Vital Signs: Temp Pulse Resp BP Pulse Ox 99.2 F 110 H 16 134/91 H 97 01/23/18 10:35 01/23/18 10:35 01/23/18 10:35 01/23/18 10:35 01/23/18 10:35 Intake & Output 01/22/18 01/23/18 01/24/18 06:59 06:59 06:59 Weight 106.7 kg General appearance: PRESENT: no acute distress Head exam: PRESENT: atraumatic, normocephalic Eye exam: PRESENT: EOMI, PERRLA. ABSENT: scleral icterus Mouth exam: PRESENT: moist, neck supple Teeth exam: ABSENT: poor dentation Neck exam: ABSENT: lymphadenopathy, meningismus, tenderness, thyromegaly, tracheal deviation Respiratory exam: PRESENT: clear to auscultation brice. ABSENT: chest wall tenderness, tachypnea Cardiovascular exam: PRESENT: RRR Pulses: PRESENT: normal radial pulses Vascular exam: PRESENT: normal capillary refill. ABSENT: pallor GI/Abdominal exam: PRESENT: soft. ABSENT: distended, tenderness Rectal exam: PRESENT: normal rectal tone, other - Small, 1 cm area at the 3 o' clock position with hypertrophic granulation tissue and a small amount of seropurulent drainage. Induration present. Extremities exam: ABSENT: clubbing, pedal edema Musculoskeletal exam: PRESENT: normal inspection. ABSENT: deformity Neurological exam: PRESENT: alert, awake, oriented to person, oriented to place , oriented to time, oriented to situation. ABSENT: CN II-XII grossly intact Psychiatric exam: ABSENT: agitated, anxious, depressed Focused psych exam: ABSENT: delusional Skin exam: PRESENT: other - See rectal exam. ABSENT: cyanosis, erythema, jaundice Results Laboratory Results: 01/23/18 11:30 01/23/18 11:30 01/23/18 01/23/18 11:30 11:30 WBC 5.2 RBC 4.58 Hgb 14.4 Hct 42.3 MCV 92 MCH 31.5 MCHC 34.1 RDW 13.3 Plt Count 274 Seg Neutrophils % 49.9 Lymphocytes % 40.7 Monocytes % 8.2 Eosinophils % 0.7 Basophils % 0.5 Absolute Neutrophils 2.6 Absolute Lymphocytes 2.1 Absolute Monocytes 0.4 Absolute Eosinophils 0.0 Absolute Basophils 0.0 Sodium 148.5 H Potassium 4.2 Chloride 106 Carbon Dioxide 27 Anion Gap 16 BUN 8 Creatinine 0.94 Est GFR ( Amer) > 60 Est GFR (Non-Af Amer) > 60 Glucose 91 Calcium 11.0 H Total Bilirubin 0.4 AST 23 ALT 27 Alkaline Phosphatase 70 Total Protein 8.0 Albumin 4.9 Assessment & Plan - Plan Summary Plan Summary: This is a patient with a perirectal abscess. The patient may have a fistula present, however at this time it is difficult to tell. I have recommended incision and drainage of the abscess to control the infection. The patient has agreed to this. Risks/benefits discussed, informed consent obtained, and all questions answered. I will begin the patient on outpatient antibiotics after his I&D. I will see him again in my office next week to follow his progress. I have encouraged him to contact me immediately with any new questions or concerns.
--- NOTE | 2018-01-23 13:06 | Operative Report ---
Nonrecallable Operative Report DATE OF SURGERY: 01/23/18 PREOPERATIVE DIAGNOSIS: Perirectal abscess at the 3 o'clock position POSTOPERATIVE DIAGNOSIS: Same as above OPERATION: Incision and drainage of a perirectal abscess at the 3 o'clock position. SURGEON: LEILA BUSBY ANESTHESIA: Local COMPLICATIONS: None apparent ESTIMATED BLOOD LOSS: Minimal PROCEDURE: Drains/implants: 4 x 4 gauze. Procedure in detail: After informed consent was obtained the patient was laid on the ER stretcher. The perirectal area was prepped and draped in a normal sterile fashion. An incision was created in an elliptical fashion around the area of hypertrophic granulation tissue. A small amount of purulent material was encountered. This was cleaned vigorously. The wound was then packed with 4 x 4 gauze. The procedure at this time was concluded. All sponge, instrument , needle counts were correct. Condition: Stable.
== END 2018-01-23 13:10 | disposition home or self-care (01) ==
LOC: ER 10:28
PROC: 0D9P0ZZ Drainage of Rectum, Open Approach (ICD-10-PCS; principal; 2018-01-23)
DX: K60.4 Rectal fistula (principal); F17.200 Nicotine dependence, unspecified, uncomplicated
CPT/HCPCS: 99284; 36415; 85025; 80053; 46040; J3490